=== PATIENT | female | born 1990 | race Caucasian/White ===

== ENCOUNTER 2019-02-15 23:44 | Emergency (ER) | payer OTHER ==
[2019-02-16] MEDS ORDERED: Sodium Chloride 0.9% 1,000 ML IV ONE (01:01)
--- NOTE | 2019-02-16 01:04 | EDM.PDOC ---
ED HPI GENERAL MEDICAL PROBLEM - General Chief Complaint: Abdominal Pain Stated Complaint: PT HAS STOMACH PAIN Time Seen by Provider: 02/16/19 00:27 - History of Present Illness INITIAL COMMENTS - FREE TEXT/NARRATIVE: HISTORY AND PHYSICAL: History of present illness: This 28-year-old female states she has history of clinically diagnosed urolithiasis prior she has never been imaged for this and presents with a concern of flank pain she denies dysuria frequency or hesitancy denies fever chills or trauma Review of systems: As per history of present illness and below otherwise all systems reviewed and negative. Past medical history: As per history of present illness and as reviewed below otherwise noncontributory. Surgical history: As per history of present illness and as reviewed below otherwise noncontributory. Social history: No reported history of drug or alcohol abuse. Family history: As per history of present illness and as reviewed below otherwise noncontributory. Physical exam: HEENT: Atraumatic, normocephalic, pupils reactive, negative for conjunctival pallor or scleral icterus, mucous membranes moist, throat clear, neck supple, nontender, trachea midline. Lungs: Clear to auscultation, breath sounds equal bilaterally, chest nontender. Heart: S1S2, regular, negative for clicks, rubs, or JVD. Abdomen: Soft, nondistended, nontender. Negative for masses or hepatosplenomegaly. Mild right-sided costovertebral tenderness. Pelvis: Stable nontender. Genitourinary: Deferred. Rectal: Deferred. Extremities: Atraumatic, negative for cords or calf pain. Neurovascular unremarkable. Neuro: Awake, alert, oriented. Cranial nerves II through XII unremarkable. Cerebellum unremarkable. Motor and sensory unremarkable throughout. Exam nonfocal. Diagnostics: CBC CMP UA hCG CT abdomen and pelvis Therapeutics: Saline 1 L bolus Impression: #1 flank pain Definitive disposition and diagnosis as appropriate pending reevaluation and review of above. right flanbk Pain Score (Numeric/FACES): 9 - Related Data Allergies Allergy/AdvReac Type Severity Reaction Status Date / Time animal dander Allergy Sneezing Verified 02/16/19 00:14 Penicillins Allergy Cannot Verified 02/16/19 00:14 Remember Home Meds: Home Meds Ibuprofen 3 tab PO ASDIRECTED PRN 04/01/15 [History] Cetirizine [ZyrTEC] 1 tab PO DAILY 06/13/18 [History] Levonorgestrel-Ethin Estradiol [Jolessa 0.15 mg-0.03 mg Tablet] 1 tab PO DAILY 06/13/18 [History] Montelukast [Singulair] 1 tab PO DAILY 06/13/18 [History] Past Medical History - Past Health History Medical/Surgical History: Denies Medical/Surgical History 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 ED EXAM, GENERAL - Physical Exam Exam: See Below (See dictation) Course - Vital Signs Text/Narrative:: I discussed all findings with patient including her urinalysis in the context of ureterolithiasis admission for observation was offered patient declined she understands the need for close monitoring of fever vomiting pain as discussed she'll be given hydrocodone Zofran Flomax and Cipro to be taken as prescribed she'll be given urology referral. Last Recorded V/S: Last Vital Signs Temp 36.6 C 02/16/19 00:16 Pulse 75 02/16/19 00:16 Resp 14 02/16/19 00:16 BP 136/94 H 02/16/19 00:16 Pulse Ox 99 02/16/19 00:16 - Orders/Labs/Meds Labs: Laboratory Tests 02/16/19 02/16/19 02/16/19 Range/Units 00:25 00:40 00:40 WBC (4.0-11.0) K/uL RBC (4.30-5.90) M/uL Hgb (12.0-16.0) g/dL Hct (36.0-46.0) % MCV (80.0-98.0) fL MCH (27.0-32.0) pg MCHC (31.0-37.0) g/dL RDW Std Deviation (28.0-62.0) fl RDW Coeff of James (11.0-15.0) % Plt Count (150-400) K/uL MPV (7.40-12.00) fL Neut % (Auto) (48.0-80.0) % Lymph % (Auto) (16.0-40.0) % [place] % (Auto) (0.0-15.0) % Eos % (Auto) (0.0-7.0) % Baso % (Auto) (0.0-1.5) % Neut # (Auto) (1.4-5.7) K/uL Lymph # (Auto) (0.6-2.4) K/uL [place] # (Auto) (0.0-0.8) K/uL Eos # (Auto) (0.0-0.7) K/uL Baso # (Auto) (0.0-0.1) K/uL Nucleated RBC % /100WBC Nucleated RBCs # K/uL Sodium 139 (136-145) mmol/L Potassium 3.9 (3.5-5.1) mmol/L Chloride 106 (98-107) mmol/L Carbon Dioxide 26.5 (21.0-32.0) mmol/L BUN 18 (7.0-18.0) mg/dL Creatinine 1.3 H (0.6-1.0) mg/dL Est Cr Clr Drug Dosing 60.31 mL/min Estimated GFR (MDRD) 48.8 ml/min Glucose 135 H (74-106) mg/dL Calcium 8.8 (8.5-10.1) mg/dL Total Bilirubin 0.2 (0.2-1.0) mg/dL AST 20 (15-37) IU/L ALT 18 (14-63) IU/L Alkaline Phosphatase 53 (46-116) U/L Total Protein 7.4 (6.4-8.2) g/dL Albumin 3.3 L (3.4-5.0) g/dL Globulin 4.1 H (2.6-4.0) g/dL Albumin/Globulin Ratio 0.8 L (0.9-1.6) HCG, Qual NEGATIVE (NEG) Urine Color YELLOW Urine Appearance SLT CLOUDY Urine pH 5.5 (5.0-8.0) Ur Specific [place] >= 1.030 (1.001-1.035) Urine Protein NEGATIVE (NEGATIVE) mg/dL Urine Glucose (UA) NEGATIVE (NEGATIVE) mg/dL Urine Ketones NEGATIVE (NEGATIVE) mg/dL Urine Occult Blood LARGE H (NEGATIVE) Urine Nitrite NEGATIVE (NEGATIVE) Urine Bilirubin NEGATIVE (NEGATIVE) Urine Urobilinogen 0.2 (<2.0) EU/dL Ur Leukocyte Esterase SMALL H (NEGATIVE) Urine RBC 3-6 (0-2/HPF) Urine WBC 3-6 (0-5/HPF) Ur Epithelial Cells MANY (NONE-FEW) Urine Bacteria 1+ H (NEGATIVE) 02/16/19 Range/Units 00:41 WBC 13.76 H (4.0-11.0) K/uL RBC 4.36 (4.30-5.90) M/uL Hgb 12.8 (12.0-16.0) g/dL Hct 39.2 (36.0-46.0) % MCV 89.9 (80.0-98.0) fL MCH 29.4 (27.0-32.0) pg MCHC 32.7 (31.0-37.0) g/dL RDW Std Deviation 42.5 (28.0-62.0) fl RDW Coeff of James 13 (11.0-15.0) % Plt Count 307 (150-400) K/uL MPV 9.30 (7.40-12.00) fL Neut % (Auto) 73.1 (48.0-80.0) % Lymph % (Auto) 18.2 (16.0-40.0) % [place] % (Auto) 7.2 (0.0-15.0) % Eos % (Auto) 1.4 (0.0-7.0) % Baso % (Auto) 0.1 (0.0-1.5) % Neut # (Auto) 10.1 H (1.4-5.7) K/uL Lymph # (Auto) 2.5 H (0.6-2.4) K/uL [place] # (Auto) 1.0 H (0.0-0.8) K/uL Eos # (Auto) 0.2 (0.0-0.7) K/uL Baso # (Auto) 0.0 (0.0-0.1) K/uL Nucleated RBC % 0.0 /100WBC Nucleated RBCs # 0 K/uL Sodium (136-145) mmol/L Potassium (3.5-5.1) mmol/L Chloride (98-107) mmol/L Carbon Dioxide (21.0-32.0) mmol/L BUN (7.0-18.0) mg/dL Creatinine (0.6-1.0) mg/dL Est Cr Clr Drug Dosing mL/min Estimated GFR (MDRD) ml/min Glucose (74-106) mg/dL Calcium (8.5-10.1) mg/dL Total Bilirubin (0.2-1.0) mg/dL AST (15-37) IU/L ALT (14-63) IU/L Alkaline Phosphatase (46-116) U/L Total Protein (6.4-8.2) g/dL Albumin (3.4-5.0) g/dL Globulin (2.6-4.0) g/dL Albumin/Globulin Ratio (0.9-1.6) HCG, Qual (NEG) Urine Color Urine Appearance Urine pH (5.0-8.0) Ur Specific [place] (1.001-1.035) Urine Protein (NEGATIVE) mg/dL Urine Glucose (UA) (NEGATIVE) mg/dL Urine Ketones (NEGATIVE) mg/dL Urine Occult Blood (NEGATIVE) Urine Nitrite (NEGATIVE) Urine Bilirubin (NEGATIVE) Urine Urobilinogen (<2.0) EU/dL Ur Leukocyte Esterase (NEGATIVE) Urine RBC (0-2/HPF) Urine WBC (0-5/HPF) Ur Epithelial Cells (NONE-FEW) Urine Bacteria (NEGATIVE) Meds: Medications Discontinued Medications Generic Name Dose Route Start Last Admin Trade Name Freq PRN Reason Stop Dose Admin Sodium Chloride 1,000 mls @ 999 mls/hr 02/16/19 01:01 02/16/19 01:22 Normal Saline IV 02/16/19 02:01 999 mls/hr STAT ONE Administration Departure - Departure Time of Disposition: 02:50 Disposition: Home, Self-Care 01 Condition: Good Clinical Impression: Ureterolithiasis - Discharge Information Referrals: Toma Overton DO [Primary Care Provider] - Forms: ED Department Discharge Additional Instructions: The following information is given to patients seen in the emergency department who are being discharged to home. This information is to outline your options for follow-up care. We provide all patients seen in our emergency department with a follow-up referral. The need for follow-up, as well as the timing and circumstances, are variable depending upon the specifics of your emergency department visit. If you don't have a primary care physician on staff, we will provide you with a referral. We always advise you to contact your personal physician following an emergency department visit to inform them of the circumstance of the visit and for follow-up with them and/or the need for any referrals to a consulting specialist. The emergency department will also refer you to a specialist when appropriate. This referral assures that you have the opportunity for followup care with a specialist. All of these measure are taken in an effort to provide you with optimal care, which includes your followup. Under all circumstances we always encourage you to contact your private physician who remains a resource for coordinating your care. When calling for followup care, please make the office aware that this follow-up is from your recent emergency room visit. If for any reason you are refused follow-up, please contact the [facility] emergency department at and asked to speak to the emergency department charge nurse. [facility] Specialty Care - Urology [address] [place] [id number] Hydrocodone Cipro Flomax Zofran as prescribed called to schedule appointment with urology above and return as needed as discussed
--- NOTE | 2019-02-16 02:23 | CT ---
INDICATION: Flank pain TECHNIQUE: CT Abdomen and pelvis without i.v. contrast. Coronal and sagittal reformats were obtained. COMPARISON: None FINDINGS: Lower chest: Unremarkable. Mild anemia is present with the cardiac chambers appearing lucent with respect to the myocardium. Liver: Unremarkable. Spleen: Unremarkable. Pancreas: Unremarkable. Gallbladder: Unremarkable. Kidney: There is a 1-2 mm stone present in the right ureterovesicular junction causing mild to moderate right hydroureter and severe right renal pelvicaliectasis. A left extrarenal pelvis is noted. There is an exophytic hyperdense lesion in the lower pole of the left kidney that measures 2.3 cm in diameter. Adrenal: Unremarkable. Bowel: Unremarkable. The appendix is normal in appearance and size. Vascular: Unremarkable. Lymph: Unremarkable. Peritoneum: Unremarkable. No pneumoperitoneum is seen. No significant ascites is noted. Pelvis: Unremarkable. Soft tissue: Unremarkable. Bone: Unremarkable for age. IMPRESSIONS: 1. There is a 1-2 mm stone present in the right ureterovesicular junction causing mild to moderate right hydroureter and severe right renal pelvicaliectasis. 2. There is an exophytic hyperdense lesion in the lower pole of the left kidney that measures 2.3 cm in diameter. Assessment with outpatient ultrasound for renal MRI recommended for further characterization. Dictated by Prabhu Rosas MD @ 02/16/2019 2:22:16 AM Please note that all CT scans at this facility use dose modulation, iterative reconstruction, and/or weight-based dosing when appropriate to reduce radiation dose to as low as reasonably achievable. Dictated by: Prabhu Rosas MD @ 02/16/2019 02:22:21 (Electronically Signed)
[2019-02-16 03:30] VITALS: BP 137/85
== END 2019-02-16 03:10 | disposition home or self-care (01) ==
LOC: MW.ED 23:44
DX: N20.1 Calculus of ureter (principal); N13.4 Hydroureter; Z88.0 Allergy status to penicillin; Z88.8 Allergy status to other drugs, medicaments and biological substances; Z79.899 Other long term (current) drug therapy
CPT/HCPCS: 36415; 74176; 80053; 81001; 84703; 85025; 96360; 99284; J7040

== ENCOUNTER 2023-09-15 11:09 | Inpatient (IN) | payer BC ==
[2023-09-15 11:42] LABS: APPEARANCE,URINE SLT CLOUDY; BILIRUBIN,URINE NEGATIVE (NEGATIVE); COLOR,URINE YELLOW; GLUCOSE,URINE NEGATIVE (NEGATIVE); KETONES,URINE NEGATIVE (NEGATIVE); LEUKOCYTE ESTERASE,URINE LARGE (NEGATIVE); NITRITE,URINE NEGATIVE (NEGATIVE); OCCULT BLOOD,URINE NEGATIVE (NEGATIVE); PROTEIN,URINE NEGATIVE (NEGATIVE); UROBILINOGEN,URINE 0.2 EU/dL (<2.0)
[2023-09-15] MEDS ORDERED: Lidocaine 1% 50 ML MDV INJECT PRN (12:02)
[2023-09-15] MEDS ORDERED: Terbutaline 1 MG/ML SDV SUBCUT PRN ×2 (12:02→12:16)
[2023-09-15] MEDS ORDERED: Water For Irrigation,Sterile 1,000 ML Container IRR PRN (12:02)
[2023-09-15] MEDS ORDERED: Sodium Chloride 0.9% 2.5 ML Syringe FLUSH PRN (12:02)
[2023-09-15] MEDS ORDERED: Ondansetron 4 MG/2 ML SDV IVPUSH PRN (12:02)
[2023-09-15] MEDS ORDERED: Carboprost Tromethamine 250 MCG/1 mL Vial IM PRN (12:02)
[2023-09-15] MEDS ORDERED: Tranexamic Acid IN NACL,ISO-OS 1,000 MG in Premix Bag 1 BAG IV PRN ×2 (12:02)
[2023-09-15] MEDS ORDERED: Misoprostol 200 MCG Tab PO PRN (12:02)
[2023-09-15] MEDS ORDERED: Sodium Chloride 0.9% 10 ML Syringe FLUSH PRN (12:02)
[2023-09-15] MEDS ORDERED: Methylergonovine 0.2 MG/1 ML Amp IM PRN (12:02)
[2023-09-15] MEDS ORDERED: Sodium Chloride 0.9% 20 ML SDV IV PRN (12:02)
[2023-09-15] MEDS ORDERED: Nalbuphine 10 MG/0.5 ML Syringe IVPUSH PRN (12:02)
[2023-09-15] MEDS ORDERED: Acetaminophen 500 MG Tab PO PRN (12:07)
[2023-09-15] MEDS ORDERED: Oxytocin/0.9 % Sodium Chloride 30 UNIT/500 ML BAG IV SCH ×3 (12:15→12:30)
[2023-09-15] MEDS ORDERED: Misoprostol 25 MCG (1/4 of 100 MCG) Tab VAG PRN ×2 (12:16)
[2023-09-15 13:20] LABS: HEMATOCRIT 37.8 % (37.0-47.0); HEMOGLOBIN 12.3 g/dL (12.0-16.0); MEAN CORPUSCULAR HEMOGLOBIN 26.3 pg (28.0-32.0); MEAN CORPUSCULAR HGB CONC 32.5 g/dL (32.0-36.0); MEAN CORPUSCULAR VOLUME 80.9 fL (83.0-99.0); PLATELET COUNT,PLT 425 K/uL (150-400); RED BLOOD CELL COUNT 4.67 M/uL (4.10-5.30); WHITE BLOOD CELL COUNT,WBC 13.26 K/uL (3.9-11.3)
[2023-09-15] MEDS ORDERED: Dinoprostone 10 MG Insert VAG PRN (14:48)
[2023-09-15] MEDS ORDERED: Phenylephrine HCl 0.5 MG/5 ML AMP IVPUSH PRN (15:14)
[2023-09-15] MEDS ORDERED: ePHEDrine 50 MG/ML SDV IVPUSH PRN ×2 (15:14)
[2023-09-15] MEDS ORDERED: Ropivacaine HCl/PF 400 MG in Premix Bag 1 BAG EPIDUR SCH (15:15)
[2023-09-15] MEDS: Lactated Ringers 1,000 ML IV SCH ×3 (15:31→23:21)
[2023-09-15] MEDS ORDERED: Labetalol 100 MG/20 ML MDV IVPUSH PRN (16:54)
[2023-09-15] MEDS ORDERED: dexmedeTOMIDine HCl 200 MCG/2 ML SDV ONE (23:13)
[2023-09-16] MEDS ORDERED: Bupivacaine 0.25% 10 ML SDV ONE (05:24)
[2023-09-16] MEDS ORDERED: fentaNYL 100 MCG/2 ML SDV ONE ×2 (05:24→11:06)
[2023-09-16] MEDS ORDERED: Ropivacaine 0.5% 5 MG/ML 30 ML SDV ONE ×2 (05:51→11:08)
[2023-09-16] MEDS ORDERED: Ondansetron 4 MG/2 ML SDV ONE ×2 (05:51→06:50)
[2023-09-16] MEDS ORDERED: Bupivacaine 0.5% 10 ML SDV ONE ×2 (05:51→11:06)
[2023-09-16] MEDS ORDERED: Dexamethasone 4 MG/ML 5 ML MDV ONE ×2 (05:51→11:08)
[2023-09-16] MEDS ORDERED: dexmedeTOMIDine HCl 200 MCG/2 ML SDV ONE (05:51)
[2023-09-16] MEDS ORDERED: Oxytocin 10 Units/1 ML SDV ONE ×3 (05:51→11:35)
[2023-09-16] MEDS ORDERED: Phenylephrine HCl 0.5 MG/5 ML AMP ONE ×4 (05:51→06:59)
[2023-09-16] MEDS ORDERED: ceFAZolin 1 GM Vial ONE ×2 (05:53→11:08)
[2023-09-16] MEDS ORDERED: Tranexamic Acid 1,000 MG/10 ML Vial ONE ×2 (06:15→11:08)
[2023-09-16] MEDS ORDERED: Morphine PF 10 MG/10 ML SDV ONE (06:19)
[2023-09-16] MEDS ORDERED: droPERidol 5 MG/2 ML SDV ONE (06:50)
[2023-09-16] MEDS: Lactated Ringers 1,000 ML IV SCH (06:53)
[2023-09-16] MEDS ORDERED: Metoclopramide 10 MG/2 ML SDV ONE (11:18)
[2023-09-16] MEDS ORDERED: Misoprostol 200 MCG Tab ONE (11:36)
[2023-09-16] MEDS ORDERED: Ketorolac 30 MG/ML SDV ONE (11:40)
[2023-09-16] MEDS ORDERED: Morphine 2 MG/ML SYRINGE IVPUSH PRN (11:52)
[2023-09-16] MEDS ORDERED: Metoclopramide 10 MG/2 ML SDV IVPUSH PRN (11:52)
[2023-09-16] MEDS ORDERED: Acetaminophen/oxyCODONE 325-5 MG Tab PO PRN ×3 (11:52→13:02)
[2023-09-16] MEDS ORDERED: diphenhydrAMINE 50 MG/ML SDV IVPUSH PRN ×2 (11:52→13:02)
[2023-09-16] MEDS ORDERED: Ondansetron 4 MG/2 ML SDV IVPUSH PRN ×3 (11:52→13:02)
[2023-09-16] MEDS ORDERED: fentaNYL 100 MCG/2 ML SDV IVPUSH PRN (11:52)
[2023-09-16] MEDS ORDERED: HYDROmorphone 1 MG/ML Syringe IVPUSH PRN (11:52)
[2023-09-16] MEDS ORDERED: droPERidol 5 MG/2 ML SDV IVPUSH PRN (11:52)
[2023-09-16] MEDS ORDERED: ePHEDrine 50 MG/ML SDV IVPUSH PRN (11:52)
[2023-09-16] MEDS ORDERED: fentaNYL 50 MCG/ML SDV IVPUSH PRN (11:52)
[2023-09-16] MEDS ORDERED: Naloxone 0.4 MG/ML SDV IVPUSH PRN (11:52)
[2023-09-16] MEDS ORDERED: Albuterol 0.083% 2.5 MG/3 ML Neb Soln NEB PRN (11:52)
[2023-09-16] MEDS: Acetaminophen 1,000 MG in Premix Bag 1 BAG IV SCH ×2 (12:20→19:23)
[2023-09-16] MEDS ORDERED: Methylergonovine 0.2 MG/1 ML Amp IM PRN (13:02)
[2023-09-16] MEDS ORDERED: Bisacodyl 10 MG Supp RECTAL PRN (13:02)
[2023-09-16] MEDS ORDERED: Misoprostol 200 MCG Tab RECTAL PRN (13:02)
[2023-09-16] MEDS ORDERED: Oxytocin 10 Units/1 ML SDV IM PRN (13:02)
[2023-09-16] MEDS ORDERED: Lanolin 100% Cream 7 GM Tube TOP PRN (13:02)
[2023-09-16] MEDS ORDERED: Oxytocin/0.9 % Sodium Chloride 30 UNIT/500 ML BAG IV SCH (13:15)
[2023-09-16] MEDS ORDERED: Ketorolac 30 MG/ML SDV IVPUSH SCH ×2 (13:15→15:00)
[2023-09-16] MEDS ORDERED: Lactated Ringers 1,000 ML IV SCH (13:15)
[2023-09-16] MEDS: Ibuprofen 800 MG Tab PO PRN (21:03)
[2023-09-16] MEDS: Docusate Sodium 100 MG Cap PO SCH (21:04)
[2023-09-17] MEDS: Acetaminophen 500 MG Tab PO PRN ×3 (01:36→17:02)
[2023-09-17] MEDS: Ibuprofen 800 MG Tab PO PRN ×3 (05:21→21:37)
[2023-09-17 06:41] LABS: HEMATOCRIT 32.2 % (37.0-47.0); HEMOGLOBIN 10.6 g/dL (12.0-16.0)
[2023-09-17] MEDS: Docusate Sodium 100 MG Cap PO SCH ×2 (08:38→20:58)
[2023-09-18] MEDS: Acetaminophen 500 MG Tab PO PRN (00:32)
[2023-09-18] MEDS: Ibuprofen 800 MG Tab PO PRN (08:11)
[2023-09-18] MEDS: Docusate Sodium 100 MG Cap PO SCH (08:11)
[2023-09-18 08:38] VITALS: PULSE 71
[2023-09-18 12:45] VITALS: BP 137/92
== END 2023-09-18 12:36 | disposition home or self-care (01) | DRG 540 ==
LOC: MW.OBCHECK 11:09 → MW.OB 11:10 → MW.OBCHECK 14:17 → MW.OB 14:19 → OBSVTOIN 09-16 13:02 → MW.OB 09-16 16:30
PROVIDERS: ADMIT Obstetrics & Gynecology; ATTEND Obstetrics & Gynecology
PROC: 10D00Z1 Extraction of Products of Conception, Low, Open Approach (ICD-10-PCS; principal; 2023-09-16 11:29)
DX: O13.4 Gestational [pregnancy-induced] hypertension without significant proteinuria, complicating childbirth (principal); Z37.0 Single live birth; Z3A.39 39 weeks gestation of pregnancy; O99.214 Obesity complicating childbirth
CPT/HCPCS: 01967; 01968; 36415; 51702; 59025; 59514; 64488; 81003; 85014; 85018; 85027; 86592; 86850; 86900; 86901; A9270-GY; J0131; J0665; J0690; J1100; J1790; J1885; J2274; J2300; J2371; J2405; J2590; J2765; J2795; J3010; J3490; J7120

== ENCOUNTER 2023-09-20 00:04 | Inpatient (IN) | payer BC ==
[2023-09-20] MEDS ORDERED: Sodium Chloride 0.9% 2.5 ML Syringe FLUSH PRN (00:27)
[2023-09-20] MEDS ORDERED: Sodium Chloride 0.9% 10 ML Syringe FLUSH PRN (00:27)
[2023-09-20 00:41] LABS: BASOPHILS ABSOLUTE AUTO 0.02 K/uL (0.00-0.20); BASOPHILS PERCENT AUTO 0.2 % (0.0-1.0); EOSINOPHILS ABSOLUTE AUTO 0.33 K/uL (0.00-0.45); HEMATOCRIT 28.1 % (37.0-47.0); HEMOGLOBIN 9.2 g/dL (12.0-16.0); IMMATURE GRAN ABSOLUTE AUTO 0.05 K/uL (0.00-0.05); IMMATURE GRAN PERCENT AUTO 0.5 % (0.0-0.4); LYMPHOCYTES ABSOLUTE AUTO 3.66 K/uL (1.00-4.80); LYMPHOCYTES PERCENT AUTO 33.4 % (24.0-44.0); MEAN CORPUSCULAR HEMOGLOBIN 26.8 pg (28.0-32.0); MEAN CORPUSCULAR HGB CONC 32.7 g/dL (32.0-36.0); MEAN CORPUSCULAR VOLUME 81.9 fL (83.0-99.0); MEAN PLATELET VOLUME 8.7 fL (9.4-12.3); MONOCYTES ABSOLUTE AUTO 0.47 K/uL (0.00-0.80); MONOCYTES PERCENT AUTO 4.3 % (0.0-8.0); NEUTROPHILS ABSOLUTE AUTO 6.43 K/uL (1.80-7.70); NEUTROPHILS PERCENT AUTO 58.6 % (41.0-71.0); PLATELET COUNT,PLT 413 K/uL (150-400); RED BLOOD CELL COUNT 3.43 M/uL (4.10-5.30); WHITE BLOOD CELL COUNT,WBC 10.96 K/uL (3.9-11.3)
[2023-09-20 00:52] LABS: APPEARANCE,URINE SLT CLOUDY; BILIRUBIN,URINE NEGATIVE (NEGATIVE); COLOR,URINE YELLOW; GLUCOSE,URINE NEGATIVE (NEGATIVE); KETONES,URINE NEGATIVE (NEGATIVE); LEUKOCYTE ESTERASE,URINE MODERATE (NEGATIVE); NITRITE,URINE NEGATIVE (NEGATIVE); OCCULT BLOOD,URINE LARGE (NEGATIVE); PROTEIN,URINE NEGATIVE (NEGATIVE); UROBILINOGEN,URINE 0.2 EU/dL (<2.0)
[2023-09-20] MEDS ORDERED: Magnesium Sulfate/Water 4 GM/100 ML BAG IV ONE (00:58)
[2023-09-20] MEDS ORDERED: hydrALAZINE 20 MG/ML SDV IVPUSH ONE (00:58)
[2023-09-20] MEDS ORDERED: Magnesium Sulfate/Water 20 GM/500 ML BAG IV SCH (01:00)
[2023-09-20 01:11] LABS: BACTERIA,URINE FEW (NEGATIVE); EPITHELIAL CELLS,URINE FEW (NONE-FEW); RBC,URINE 25-30 (0-2/HPF)
[2023-09-20 01:13] LABS: A/G RATIO 0.5 (0.9-1.6); ALBUMIN 2.1 g/dL (3.4-5.0); BILIRUBIN TOTAL 0.2 mg/dL (0.2-1.0); CALCIUM 8.8 mg/dL (8.5-10.1); CARBON DIOXIDE,CO2 23.3 mmol/L (21.0-32.0); CREATININE 0.8 mg/dL (0.6-1.0); EST CRCL DRUG DOSING (CG) 93.63 mL/min; POTASSIUM,K 4.3 mmol/L (3.5-5.1); PROTEIN TOTAL,TP 6.2 g/dL (6.4-8.2)
[2023-09-20 01:28] LABS: CREATININE,URINE RAND 16.7 mg/dL; PROTEIN,URINE RANDOM 16.7 mg/dL (<11.9)
[2023-09-20] MEDS ORDERED: Iopamidol 755 MG/ML 500 ML Multipack Bottle IVPUSH ONE (02:01)
[2023-09-20] MEDS ORDERED: Calcium Gluconate 10% 1 GM/10 ML SDV IVPUSH ONE (05:36)
[2023-09-20] MEDS ORDERED: Calcium Gluconate 10% 1 GM/10 ML SDV IV PRN (05:42)
[2023-09-20] MEDS ORDERED: Labetalol 100 MG/20 ML MDV IVPUSH PRN (05:49)
[2023-09-20] MEDS ORDERED: diphenhydrAMINE 50 MG/ML SDV IVPUSH PRN (06:57)
[2023-09-20] MEDS ORDERED: diphenhydrAMINE 50 MG/ML SDV ONE (07:01)
[2023-09-20] MEDS: Acetaminophen 500 MG Tab PO PRN ×3 (07:05→23:28)
[2023-09-20] MEDS: Labetalol 100 MG Tab PO SCH ×2 (09:02→21:03)
[2023-09-21] MEDS: Labetalol 100 MG Tab PO SCH (09:11)
[2023-09-21 11:28] VITALS: BP 137/86; PULSE 66
== END 2023-09-21 12:05 | disposition home or self-care (01) | DRG 561 ==
LOC: MW.ED 00:04 → MW.OB 04:28
PROVIDERS: ADMIT Obstetrics & Gynecology; ATTEND Obstetrics & Gynecology
DX: O14.05 Mild to moderate pre-eclampsia, complicating the puerperium (principal); O99.215 Obesity complicating the puerperium; Z88.8 Allergy status to other drugs, medicaments and biological substances; Z88.0 Allergy status to penicillin
CPT/HCPCS: 36415; 71045; 71045-26; 71275; 71275-26; 80053; 81001; 82570; 83615; 83735; 84156; 84484; 85025; 85379; 93005; 93010; 96365; 96366; 96375; 99285-25; 99291; A9270-GY; J0360; J1200; J3475; J3490; Q9967

== ENCOUNTER 2024-12-07 15:35 | Emergency (ER) | payer BC ==
[2024-12-07 16:07] VITALS: BP 144/100; PULSE 100
[2024-12-07 16:16] LABS: BASOPHILS ABSOLUTE AUTO 0.02 K/uL (0.00-0.20); BASOPHILS PERCENT AUTO 0.2 % (0.0-1.0); EOSINOPHILS ABSOLUTE AUTO 0.29 K/uL (0.00-0.45); EOSINOPHILS PERCENT AUTO 3.2 % (0.0-6.0); HEMATOCRIT 42.3 % (37.0-47.0); HEMOGLOBIN 13.6 g/dL (12.0-16.0); IMMATURE GRAN ABSOLUTE AUTO 0.03 K/uL (0.00-0.05); IMMATURE GRAN PERCENT AUTO 0.3 % (0.0-0.4); LYMPHOCYTES ABSOLUTE AUTO 3.52 K/uL (1.00-4.80); LYMPHOCYTES PERCENT AUTO 38.5 % (24.0-44.0); MEAN CORPUSCULAR HEMOGLOBIN 28.2 pg (28.0-32.0); MEAN CORPUSCULAR HGB CONC 32.2 g/dL (32.0-36.0); MEAN CORPUSCULAR VOLUME 87.8 fL (83.0-99.0); MEAN PLATELET VOLUME 9.3 fL (9.4-12.3); MONOCYTES ABSOLUTE AUTO 0.65 K/uL (0.00-0.80); MONOCYTES PERCENT AUTO 7.1 % (0.0-8.0); NEUTROPHILS ABSOLUTE AUTO 4.63 K/uL (1.80-7.70); NEUTROPHILS PERCENT AUTO 50.7 % (41.0-71.0); PLATELET COUNT,PLT 278 K/uL (150-400); RED BLOOD CELL COUNT 4.82 M/uL (4.10-5.30); WHITE BLOOD CELL COUNT,WBC 9.14 K/uL (3.9-11.3)
[2024-12-07 16:29] LABS: INR 0.99 (0.86-1.11)
[2024-12-07 16:48] LABS: A/G RATIO 0.9 (0.9-1.6); ALANINE AMINOTRANSFERASE,ALT 19 IU/L (14-63); ALBUMIN 3.5 g/dL (3.4-5.0); ALKALINE PHOSPHATASE 91 U/L (46-116); ASPARTATE AMNIOTRANSFERASE,AST 15 IU/L (15-37); BILIRUBIN TOTAL 0.2 mg/dL (0.2-1.0); BLOOD UREA NITROGEN,BUN 14 mg/dL (7.0-18.0); CALCIUM 9.2 mg/dL (8.5-10.1); CARBON DIOXIDE,CO2 26.5 mmol/L (21.0-32.0); CHLORIDE,CL 103 mmol/L (98-107); EST CRCL DRUG DOSING (CG) 74.21 mL/min; GLUCOSE RANDOM 89 mg/dL (74-106); POTASSIUM,K 3.9 mmol/L (3.5-5.1); PRO B-TYPE NATRIUR PEPT,BNPPRO 16 pg/mL (0-125); PROTEIN TOTAL,TP 7.6 g/dL (6.4-8.2); SODIUM,NA 141 mmol/L (136-145)
[2024-12-07 16:51] LABS: ESTIMATED GFR 76 mL/min (>60)
== END 2024-12-07 17:37 | disposition home or self-care (01) ==
LOC: MW.ED 15:35
DX: R07.9 Chest pain, unspecified (principal); E66.9 Obesity, unspecified; Z68.35 Body mass index [BMI] 35.0-35.9, adult; Z86.16 Personal history of COVID-19; Z88.0 Allergy status to penicillin; Z88.8 Allergy status to other drugs, medicaments and biological substances; Z91.048 Other nonmedicinal substance allergy status; Z75.3 Unavailability and inaccessibility of health-care facilities
CPT/HCPCS: 36415; 71045; 71045-26; 80053; 83880; 84484; 85025; 85610; 93005; 93010; 99284; 99285